=== PATIENT | female | born 1990 | race Caucasian/White ===

== ENCOUNTER 2022-02-16 17:37 | Emergency (ER) | payer BC, SELFPAY ==
[2022-02-16 17:38] VITALS: BP 127/80; PULSE 101; RESP 18; TEMP 39; O2SAT 98; BMI 40.2; BMI 42.0
[2022-02-16 18:00] LABS: Microscopic, Urine URINE MICROSCOPIC (MICROSCOPIC)
[2022-02-16 18:04] LABS: Appearance,Urine CLEAR (Clear); Bilirubin,Urine Negative (Negative); Blood, Urine TRACE-L (Negative); Color,Urine YELLOW (Yellow); Glucose,Urine (UA) Negative (Negative); Ketones,Urine Negative (Negative); Leukocyte Esterase,Urine TRACE (Negative); Nitrate,Urine Negative (Negative); PH,Urine 6.5 (5.0-8.5); Protein,Urine Negative (Negative); Urine Pregnancy, HCG Qual. Negative (Negative); Urobilinogen,Urine 0.2 EU/dl (0.2)
[2022-02-16 18:06] LABS: Amorphous Sediment,Urine Trace /lpf; WBC,Urine Occasional #/hpf (0-3)
--- NOTE | 2022-02-16 18:23 | HMH.EDGENADL ---
ED Disposition Condition on Discharge: Good - Critical Care Critical Care Time: No <RaffaelenegritoJohn - Last Filed: 02/16/22 20:06> <Ced Fragoso - Last Filed: 02/16/22 21:14> Clinical Impression: Rectal bleeding, Febrile illness, acute Disposition: Home, Self-Care Instructions: DI for Fever (Symptom) -- Adult Additional Instructions: fluids and see pcp for follow up Referrals: Provider,Referral, MD [Primary Care Provider] - Attestation: On 02/16/22, the high probability of a clinically significant, sudden or life threatening deterioration of the following system(s) required my full and direct attention, intervention and personal management. The time I documented below is in addition to time spent performing reported procedures but includes the following listed in this critical care notation. Medical Decision Making - Miquel Inquiry Pt receiving controlled substance: No - Lab Data Result diagrams: 02/16/22 18:39 02/16/22 18:39 <RaffaelenegritoJohn - Last Filed: 02/16/22 20:06> - Lab Data Lab results reviewed: Yes: I reviewed the patient's lab results. Result diagrams: 02/16/22 18:39 02/16/22 18:39 - CT Data CT Scan: Abdomen, Pelvis Time Received: 21:[address] Reviewed: Yes: I have viewed the radiologist's interpretation Preliminary Findings: Normal/NAD <Ced Fragoso - Last Filed: 02/16/22 21:14> Vital Signs: 02/16/22 17:38 02/16/22 18:54 Temperature 102.2 F H 99.8 F H Temperature Source Oral Oral Pulse Rate 87 Pulse Rate [Radial] 101 H Respiratory Rate 18 16 Blood Pressure 117/71 Blood Pressure [Right Arm] 127/80 Blood Pressure Mean [Right Arm] 95 Blood Pressure Position [Right Arm] Sitting 02 Sat by Pulse Oximetry 98 97 Oxygen Delivery Method Room Air Room Air - Lab Data Lab Results 02/16/22 17:50: Urine Color Yellow, Urine Appearance Clear, Urine pH 6.5, Ur Specific [place] 1.020, Urine Protein Negative, Urine Glucose (UA) Negative, Urine Ketones Negative, Urine Blood Trace-l, Urine Nitrate Negative, Urine Bilirubin Negative, Urine Urobilinogen 0.2, Ur Leukocyte Esterase Trace, Urine RBC 3-5, Urine WBC Occasional, Ur Squamous Epith Cells 10-20, Amorphous Sediment Trace 02/16/22 17:50: Urine HCG, Qual Negative 02/16/22 17:54: SARS-CoV-2 (PCR) Not detected, Influenza A Untype (PCR) Not detected, Influenza Type B (PCR) Not detected 02/16/22 18:39: WBC 8.6, RBC 4.82, Hgb 13.7, Hct 42.8, MCV 88.7, MCH 28.4, MCHC 32.0, RDW 13.0, Plt Count 324, MPV 8.1, Neut % (Auto) 80.8 H, Lymph % (Auto) 13.6, [place] % (Auto) 2.9, Eos % (Auto) 1.0, Baso % (Auto) 1.6, Neut # (Auto) 7.0, Lymph # (Auto) 1.2, [place] # (Auto) 0.3, Eos # (Auto) 0.1, Baso # (Auto) 0.1 02/16/22 18:39: Sodium 136, Potassium 3.6, Chloride 104, Carbon Dioxide 24, Anion Gap 11.6, BUN 13, Creatinine 0.80, Estimated Creat Clear 159, Estimated GFR 83, Est GFR ( Amer) 101, Glucose 111 H, Calcium 9.0, Total Bilirubin 0.9, AST 26, ALT 20, Alkaline Phosphatase 69, Total Protein 7.2, Albumin 4.0, Globulin 3.2, Albumin/Globulin Ratio 1.3 02/16/22 18:39: Lactate 0.8 02/16/22 18:39: ESR 10 02/16/22 18:39: C-Reactive Protein 33.4 H, Procalcitonin 0.504 Orders (Tests/Meds): ED MEDICATIONS Discontinued Medications Generic Name Dose Route Start Last Admin Trade Name Sohailq PRN Reason Stop Dose Admin Acetaminophen 1,000 mg 02/16/22 17:50 02/16/22 17:57 Acetaminophen 500mg Tab PO 02/16/22 17:51 1,000 mg ONCE ONE Administration Iopamidol 75 ml 02/16/22 19:57 02/16/22 19:59 Iopamidol-370 (76%);100ml Bottle IV 02/16/22 19:58 75 ml ONCE ONE Administration Sodium Chloride 10 ml 02/16/22 19:57 02/16/22 19:58 Sodium Chloride 0.9% 10ml Syr (Rad Only) IV 02/16/22 19:58 10 ml ONCE ONE Administration ORDERS Category Date Time Status Blood Culture Stat Micro 02/16/22 18:39 Received Medical Decision Narrative: 8:00 PM: At shift change, I have discussed the patient with the oncoming ph
--- NOTE | 2022-02-16 18:35 | PC.NURSE ---
RECTAL EXAM PER DR PERDOMO WITH FEMALE NURSE PRESENT
[2022-02-16 18:42] LABS: Coronavirus 19, PCR Not Detected (NotDetected); Influenza A, PCR Not Detected (NotDetected); Influenza B, PCR Not Detected (NotDetected)
[2022-02-16 18:54] VITALS: BP 117/71; PULSE 87; RESP 16; TEMP 37.7; O2SAT 97
[2022-02-16 18:54] LABS: Basophils # 0.1 K/mm3 (0-0.2); Basophils % 1.6 % (0.1-2.0); Eosinophils # 0.1 K/mm3 (0.0-0.4); Hematocrit 42.8 % (37.0-47.0); Hemoglobin 13.7 g/dL (12.2-16.2); Lymphocytes # 1.2 K/mm3 (0.7-4.5); Lymphocytes % 13.6 % (10-50); Mean Corpuscular Hemoglobin 28.4 pg (27.0-31.2); Mean Corpuscular Volume 88.7 fl (81-99); Mean Platelet Volume 8.1 fl (7.4-10.4); Monocytes # 0.3 K/mm3 (0.1-1.0); Monocytes % 2.9 % (1.7-9.3); Neutrophils % 80.8 % (37.0-80.0); Platelet Count 324 K/mm3 (142-424); Red Blood Count 4.82 M/mm3 (4.20-5.40); White Blood Count 8.6 K/mm3 (4.8-10.8)
--- NOTE | 2022-02-16 18:55 | PC.NURSE ---
FAMILY AT BEDSIDE UPDATED ON PLAN OF CARE
[2022-02-16 19:02] LABS: Alanine Aminotransferase 20 U/L (12-78); Albumin/Globulin Ratio 1.3 (1.1-1.8); Alkaline Phosphatase 69 U/L (38-126); Anion Gap 11.6 mEq/L (5-15); Aspartate Amino Transferase 26 U/L (14-36); Bilirubin,Total 0.9 mg/dl (0.2-1.3); Blood Urea Nitrogen 13 mg/dl (7-17); Carbon Dioxide 24 mmol/L (22.0-30.0); Chloride 104 mmol/L (98-107); Creatinine Clearance Estimated 159 mL/min (50-200); Estimated Glomerular Filt Rate 83 ml/min (>60); GFR (African American) 101 ML/MIN (>60); Globulin 3.2 g/dL (1.3-3.2); Glucose 111 mg/dl (74-100); Potassium 3.6 mmoL/L (3.5-5.1); Sodium 136 mmol/L (136-145); Total Protein,Serum 7.2 g/dl (6.3-8.2)
[2022-02-16 19:03] LABS: Lactic Acid 0.8 mmol/L (0.7-2.1)
--- NOTE | 2022-02-16 19:26 | CT_ITS ---
PROCEDURE INFORMATION: Exam: CT Abdomen And Pelvis With Contrast Exam date and time: 02/16/2022 7:43 PM Age: 31 years old Clinical indication: Fever and other: Rectal bleeding; Prior surgery; Surgery date: 6+ months; Surgery type: Gb inq hernia as a child; Additional info: Rectal bleeding and fever TECHNIQUE: Imaging protocol: Computed tomography of the abdomen and pelvis with contrast. Radiation optimization: All CT scans at this facility use at least one of these dose optimization techniques: automated exposure control; mA and/or kV adjustment per patient size (includes targeted exams where dose is matched to clinical indication); or iterative reconstruction. Contrast material: ISOVUE; Contrast volume: 75 ml; Contrast route: IV; COMPARISON: No relevant prior studies available. FINDINGS: Liver: Normal. No mass. Gallbladder and bile ducts: Post cholecystectomy change. Pancreas: Normal enhancement. No ductal dilation. Spleen: No splenomegaly. Adrenal glands: No mass. Kidneys and ureters: No hydronephrosis. Stomach and bowel: Rectosigmoid colon is decompressed and not well evaluated. No obstruction. Appendix: No evidence of appendicitis. Intraperitoneal space: No free air. No significant fluid collection. Vasculature: No abdominal aortic aneurysm. Lymph nodes: No enlarged lymph nodes. Urinary bladder: No acute abnormality. Reproductive: No acute abnormality. Bones/joints: No acute fracture. Soft tissues: 2.8 x 2.1 cm fat containing right inguinal hernia. IMPRESSION: No definite acute intra-abdominal findings. Chronic and incidental findings described above.
[2022-02-16 19:43] LABS: C-Reactive Protein 33.4 mg/L (0-4)
[2022-02-16 19:57] LABS: Procalcitonin 0.504 ng/mL (0.0-2.0)
[2022-02-16 19:58] LABS: Erythrocyte Sedimentation Rate 10 mm/hr (0-20)
--- NOTE | 2022-02-16 20:46 | PC.NURSE ---
at updating pt on POC
[2022-02-16 21:20] VITALS: BP 121/77; PULSE 80; RESP 18; TEMP 36.8; O2SAT 98
== END 2022-02-16 21:22 | disposition home or self-care (01) ==
PROVIDERS: Emergency Provider Emergency Medicine
DX: K62.5 Hemorrhage of anus and rectum (principal); R50.9 Fever, unspecified; M79.10 Myalgia, unspecified site
CPT/HCPCS: 74177; 80053; 81001; 81025; 83605; 84145; 85025; 85651; 86140; 87040; 99284; C9803; Q9967; U0003; U0005

== ENCOUNTER 2024-02-04 09:22 | Emergency (ER) | payer OTHER, SELFPAY ==
--- NOTE | 2024-02-04 09:25 | XR_ITS ---
FINAL REPORT CLINICAL HISTORY: Right knee pain FINDINGS: Three views of the right knee reveal no evidence of fracture or dislocation. There is a chronic calcification anterior to the tibial tubercle. The bony alignment is normal. The joint spaces are preserved. There is no evidence of joint effusion. No localized soft tissue abnormality is identified. IMPRESSION: No acute abnormality identified. Reviewed, Interpreted and Dictated by García Law III, MD Transcribed by Roopa Bailey Authenticated and [facility]
[2024-02-04 09:30] VITALS: BP 123/73; PULSE 72; RESP 20; TEMP 36.6; O2SAT 97; BMI 34.7
--- NOTE | 2024-02-04 09:45 | EXP.UTC ---
Discharge Plan Disposition Patient Disposition: Home, Self-Care Condition: Good Prescriptions Prescriptions: No Action sertraline 25 mg tablet 25 mg PO DAILY dextroamphetamine-amphetamine 25 mg capsule,extended release 24hr 25 mg PO DAILY etonogestrel-ethinyl estradiol 0.12-0.015 mg/24 hr ring 1 vag ring VAGINAL ONCE Wegovy 2.4 mg/0.75 mL pen injector 2.4 mg SQ WEEKLY Referrals Follow up/Referrals: Roel Julian MD [Primary Care Provider] - See instructions Activity Restrictions/Add. Instructions Additional Instructions/Restrictions: Go to Dr. Miranda's office for further evaluation. Clinical Impressions Clinical Impression: Knee instability Instructions Patient Instructions: DI for Knee Pain Discharge ED Provider: Cori Monroy [facility] General Stated complaint: AO-7/2 Pain and swelling in R knee Mode of Arrival: Ambulatory Source of Information: Patient Limitations: No Limitations Time Seen by Provider: 02/04/24 09:44 Description of Symptoms (Recalled from Triage Doc. by RN): PATIENT C/O RIGHT KNEE PAIN AFTER FALLING AND LANDING ON KNEE LAST NIGHT HEENT Symptoms (Recalled from RN notes): No Resp Symptoms (Recalled from RN notes): No Skin Symptoms (Recalled from RN notes): No MS Symptoms (Recalled from RN notes): Yes Functional Status (Recalled from RN notes): WNL History of Present Illness Provider Complaint: Reports that she was walking and she twisted and fell hitting her knees on the ground. She states that she has had a lot of right knee pain and can't bend without manually assisting the knee to bend. Related Data Home Medications Medication Instructions Recorded Confirmed dextroamphetamine-amphetamine ER 25 mg PO DAILY 02/04/24 02/04/24 25 mg 24hr capsule,extend release etonogestrel 0.12 mg-ethinyl 1 vag ring vaginal ONCE 02/04/24 02/04/24 estradiol 0.015 mg/24 hr vaginal ring semaglutide (weight loss) 2.4 2.4 mg SQ WEEKLY 02/04/24 02/04/24 mg/0.75 mL subcutaneous pen injector (Wegovy) sertraline 25 mg tablet 25 mg PO DAILY 02/04/24 02/04/24 Allergies Allergy/AdvReac Type Severity Reaction Status Date / Time No Known Allergies Allergy Verified 02/16/22 17:49 Worker's Comp Is this a Worker's Comp case?: No [facility] Disclaimer: The information contained in this section may have been updated after the patient was seen, as this information can be updated by other users. Medical History (Updated 02/04/24 @ 11:05 by Cori Monroy APRN) ADHD Depression Anxiety Surgical History History of cholecystectomy Social History Smoking Status: Never smoker alcohol intake: current current occupational status: employed Travel in the last 8 weeks: Inside the [place] ROS Obtained: Yes All systems reviewed & no additional complaints except as documented Constitutional Constitutional: Reports system reviewed and no additional complaints, except as documented Eyes Eyes: Reports system reviewed and no additional complaints, except as documented ENT Ears, Nose, Mouth, and Throat: Reports system reviewed and no additional complaints, except as documented Cardiovascular Cardiovascular: Reports system reviewed and no additional complaints, except as documented Respiratory Respiratory: Reports system reviewed and no additional complaints, except as documented Gastrointestinal Gastrointestingal: Reports system reviewed and no additional complaints, except as documented Genitourinary Female Genitourinary: Reports system reviewed and no additional complaints, except as documented Musculoskeletal Musculoskeletal: Reports system reviewed and no additional complaints, except as documented, Reports abnormal gait, Reports arthralgias and Reports joint swelling Integumentary/Breasts Skin/Breast: Reports system reviewed and no additional complaints, except as documented Neurologic Neurologic: Reports system reviewed and no additional complaints, except as documented and Reports abnormal gait Endocrine Endocrine: Reports system reviewed and no additional complaints, except as documented Hematologic/Lymphatic Henatologic/Lymphatic: Reports system reviewed and no additional complaints, except as documented Allergic/Immunologic Allergic/Immunologic: Reports system reviewed and no additional complaints, except as documented Physical Exam General General appearance: alert and in no apparent distress Head Head exam: atraumatic and normocephalic Eye Eye exam: Present normal appearance ENT ENT exam: Present normal exam and normal oropharynx Neck Neck exam: Present normal inspection Chest Chest inspection: Present normal inspection and symmetric chest wall rise Respiratory Respiratory exam: Present normal lung sounds bilaterally Cardiovascular Cardiovascular exam: Present regular rate and normal rhythm Abdominal Exam Abdominal exam: Present soft and normal bowel sounds Extremities Exam Extremities exam: Present other Expanded Lower Extremity Exam Right: Hip/Pelvis exam: Present normal inspection Upper leg exam: Present normal inspection Knee exam: Present tenderness, swelling, ecchymosis, effusion and other (Pt does not tolerate movement of knee from straight to bend or bend to straight. knee unstable on exam. ) Ankle exam: Present normal inspection Foot/toe exam: Present normal inspection Neurovascular/Tendon exam: Present normal capillary refill Gait: observed and limited by pain Back Exam Back exam: Present normal inspection Neurological Exam Neurological exam: Present alert and oriented X3 Psychiatric Psychiatric exam: Present normal affect and normal mood Skin Skin exam: Present warm, dry and intact Medical Decision Making Miquel Inquiry Pt receiving controlled substance: No Miquel was queried for this patient: No Vital Signs: 02/04/24 09:30 Temperature 97.9 F Temperature Source Oral Pulse Rate [Left Brachial] 72 Respiratory Rate 20 Blood Pressure [Left Arm] 123/73 Blood Pressure Mean [Left Arm] 89 Blood Pressure Source [Left Arm] Automatic Cuff Blood Pressure Position [Left Arm] Sitting 02 Sat by Pulse Oximetry 97 Oxygen Delivery Method Room Air Orders (Tests/Meds): ORDERS Category Date Time Status Knee XR right 3 views [XR knee RT 3V] Stat Exams 02/04/24 09:25 Ordered
[2024-02-04 11:06] VITALS: BP 123/73; PULSE 72; RESP 20; TEMP 36.6; O2SAT 97
== END 2024-02-04 11:08 | disposition home or self-care (01) ==
PROVIDERS: Emergency Provider Nurse Practitioner Family; PCP Family Medicine
DX: M25.561 Pain in right knee; M25.361 Other instability, right knee; W18.30XA Fall on same level, unspecified, initial encounter
CPT/HCPCS: 73562; 99204; 99212; G0463

== ENCOUNTER 2024-02-04 12:52 | Outpatient (RCR) | payer OTHER, SELFPAY | END 2024-02-04 14:00 | disposition home or self-care (01) | LOC: PT 12:52 | PROVIDERS: Visit Provider Physician Assistant | DX: M25.561 Pain in right knee (principal); S89.91XA Unspecified injury of right lower leg, initial encounter | CPT/HCPCS: 97760 ==